=== PATIENT | male | born 1990 | race Caucasian/White ===

== ENCOUNTER 2021-04-24 16:34 | Emergency (ER) | payer OTHER, SELFPAY ==
[2021-04-24 16:45] VITALS: BP 109/62; PULSE 83; RESP 18; TEMP 37; O2SAT 99
--- NOTE | 2021-04-24 18:11 | ED.GENADULT ---
HPI - General Adult General Chief complaint: Dental/Oral Stated complaint: tooth abcess Time Seen by Provider: 04/24/21 16:50 Source: patient Mode of arrival: ambulatory Limitations: no limitations History of Present Illness HPI narrative: Patient presents for evaluation of right upper dental pain for the last two days. He states the pain is constant, throbbing, 3 out of 10 in severity. He has had problems with recurrent dental abscess formations in the past. No fever, chills, nausea, vomiting, trismus or problems handling secretions. He has not taken any antibiotics as of late. In the past he has drained fluid from abscess formations, although he has not done so recently. Related Data Allergies Allergy/AdvReac Type Severity Reaction Status Date / Time No Known Allergies Allergy Verified 04/24/21 16:34 Review of Systems Review of Systems: Narrative: CONSTITUTIONAL: Denies fever, chills, or sweats. EYES: Denies visual changes, redness, or discharge. ENT: Reports right upper dental pain. Denies rhinorrhea, congestion, sore throat, or otalgia. CARDIOVASCULAR: Denies chest pain, palpitations, or edema. RESPIRATORY: Denies cough or dyspnea. GASTROINTESTINAL: Denies abdominal pain, nausea, vomiting, or diarrhea. GENITOURINARY: Denies dysuria or hematuria. SKIN: Denies rash or itching. MUSCULOSKELETAL: Denies back pain, joint pain, or myalgia. NEUROLOGIC: Denies headache, numbness, dizziness, or weakness. PSYCHIATRIC: Denies anxiety or depression. [facility] Past Medical History Medical History (Updated 04/24/21 @ 18:21 by ESTEBAN Hood, ) No pertinent past medical history Surgical History Surgical History No pertinent past surgical history Family History Family History Mother No pertinent past medical history Social History Social History Smoking packs per day: 1 Smoking cigarettes per day: 20.0 Smoking status: Current every day smoker Substance use: never Gender identity (if verbalized by the patient): Male Sexual Orientation (if Verbalized by the Patient): Straight or Heterosexual Spiritual care concerns: No Exam Narrative: Exam Narrative: GENERAL: Well-appearing, well-nourished, and in no acute distress. HEAD: Normocephalic, atraumatic. EYES: PERRLA and EOMI. ENT: Nares clear, no rhinorrhea or epistaxis. Mucous membranes moist. Following teeth are fractured: #4, #19, #20-No visible or palpable abscess, Oropharynx without tonsillar hypertrophy exudate or other lesions. Bilateral TMs pearly jones nonbulging NECK: Supple. No adenopathy or masses. No carotid bruits or JVD CHEST: Clear to auscultation. No respiratory distress. No wheezes rales or rhonchi HEART: Regular rate and rhythm. No murmur heard. Normal peripheral pulses. ABDOMEN: Soft, nontender, nondistended, normal active bowel sounds. EXTREMITIES: Normal range of motion. No edema. SKIN: Warm, dry, no rash. NEURO: No focal deficits. Alert and oriented x3. PSYCH: Normal mood and affect. Course Course Emergency Course: This is a 31-year-old male who presents with 2-day history of dental pain. On physical exam he has no drainable fluid collection. He does have several dental fractures noted. He was advised to follow-up with dentist. We will place him on penicillin and ibuprofen. Advised follow-up for worsening symptoms. Patient agreed with plan of care. Vital Signs Vital signs: Vital Signs Temperature 37.0 C 04/24/21 16:45 Pulse Rate 83 04/24/21 16:45 Respiratory Rate 18 04/24/21 16:45 Blood Pressure 109/62 04/24/21 16:45 Pulse Oximetry 99 04/24/21 16:45 Temperature 37.0 C 04/24/21 16:45 Pulse Rate 83 04/24/21 16:45 Respiratory Rate 18 04/24/21 16:45 Blood Pressure 109/62 04/24/21 16:45 Pulse Oximetry 99 06
== END 2021-04-24 18:32 | disposition home or self-care (01) ==
PROVIDERS: Emergency Provider Nurse Practitioner
DX: K03.81 Cracked tooth (principal); F17.210 Nicotine dependence, cigarettes, uncomplicated
CPT/HCPCS: 99283

== ENCOUNTER 2021-09-23 03:38 | Emergency (ER) | payer OTHER, SELFPAY ==
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
[2021-09-23 03:48] VITALS: BP 115/76; PULSE 86; RESP 16; TEMP 36.6; O2SAT 99
[2021-09-23 03:53] VITALS: PULSE 78; RESP 16
--- NOTE | 2021-09-23 03:59 | PC.NURSE ---
contacted poison control sincere recommend food, kiet, return to hosp if he develops a fever
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
[2021-09-23] MEDS: SODIUM CHLORIDE 0.9% IV 1,000 ML 999 ML IV CONT (04:24)
[2021-09-23] MEDS: ONDANSETRON INJ 4 MG/2 ML VIAL IV PUSH (04:25)
--- NOTE | 2021-09-23 04:27 | PC.NURSE ---
eating sandwich and chips
--- NOTE | 2021-09-23 04:40 | PC.NURSE ---
small amount of vomiting after eating smiling resp even unlabored
[2021-09-23 04:41] VITALS: PULSE 80; RESP 16; O2SAT 100
[2021-09-23] MEDS: MAG HYDROX/AL HYDROX/SIMETH 30 ML UDC PO (05:14)
[2021-09-23 05:23] VITALS: BP 101/78; PULSE 78; RESP 16; O2SAT 99
--- NOTE | 2021-10-02 07:01 | PC.NURSE ---
LATE ENTRY This note is being entered to document information to the patient's record. The following information was omitted on [09/23/21], by [Floyd Cruz].Ns 1000cc infused at 0625 0cc wasted
== END 2021-09-23 05:23 | disposition home or self-care (01) ==
PROVIDERS: Emergency Provider Emergency Medicine
DX: T59.891A Toxic effect of other specified gases, fumes and vapors, accidental (unintentional), initial encounter (principal); F17.210 Nicotine dependence, cigarettes, uncomplicated
CPT/HCPCS: 71045; 96361; 96374; 99284; A9270; J2405; J7030

== ENCOUNTER 2025-03-14 14:05 | Emergency (ER) | payer OTHER, SELFPAY ==
--- NOTE | 2025-03-14 14:19 | ED_ITS ---
HPI - Extremity Injury (Lower) General Chief Complaint: Extremity Injury, Lower Stated Complaint: left foot hard to walk on Time Seen by Provider: 03/14/25 14:19 Source: patient Mode of arrival: ambulatory Limitations: no limitations History of Present Illness HPI Narrative: 35 yo M presents with c/o pain, itching, redness and swelling to both feet. increase in irritation to R foot concerned him for staph infection . Also reports R great toenail been black, thick and growing irrgularly for over a year. Has not seen at insurance account specialist. All systems reviewed and negative except as noted above. Related Data Home Medications ?Medication ?Instructions ?Recorded ?Confirmed ?Last Taken ?Type buspirone 15 mg tablet mg 03/14/25 Unknown History hydroxyzine HCl 25 mg tablet mg 03/14/25 Unknown History nicotine 21 mg/24 hr daily 03/14/25 Unknown History transdermal patch Allergies Allergy/AdvReac Type Severity Reaction Status Date / Time No Known Allergies Allergy Verified 03/14/25 14:13 Review of Systems Review of Systems: CONSTITUTIONAL: Denies fever, chills, or sweats. EYES: Denies visual changes, redness, or discharge. ENT: Denies rhinorrhea, congestion, sore throat, or otalgia. CARDIOVASCULAR: Denies chest pain, palpitations, or edema. RESPIRATORY: Denies cough or dyspnea. GASTROINTESTINAL: Denies abdominal pain, nausea, vomiting, or diarrhea. GENITOURINARY: Denies dysuria or hematuria. SKIN: reports redness, swelling, itching both feet. MUSCULOSKELETAL: Denies back pain, joint pain, or myalgia. NEUROLOGIC: Denies headache, numbness, or weakness. PSYCHIATRIC: Denies anxiety or depression. All other systems reviewed are negative, except as documented in HPI. [facility] Past Medical History Medical History No pertinent past medical history Surgical History Surgical History No pertinent past surgical history Family History Family History Mother No pertinent past medical history Social History Social History Smoking packs per day: 1 Smoking cigarettes per day: 20.0 Smoking status: Current every day smoker Substance use: never Gender identity (if verbalized by the patient): Male Sexual Orientation (if Verbalized by the Patient): Straight or Heterosexual Spiritual care concerns: No Comments At time of signature, agree with nursing past medical, surgical, social and family history. There is no relevant family history pertinent to the presenting complaint. Exam Narrative: GENERAL: This is a well-nourished, well-developed patient, in no apparent distress. HEAD: normocephalic, atraumatic. EYES: PERRL. Sclera clear/white. Vision is grossly intact. EARS: External ears normal NOSE: External nose normal NECK: Neck supple, non-tender without lymphadenopathy, masses or thyromegaly. CARDIOVASCULAR: Regular rate and rhythm without murmurs, gallops, or rubs. RESPIRATORY: Clear to auscultation. Breath sounds equal bilaterally. No wheezes, rales, or rhonchi. SKIN: warm, Dry, intact with no suspicious lesions or rash, good texture and turgor. R great toenail is black and thick NEURO: awake, alert, and oriented to person, place and time. There were no obvious focal neurologic abnormalities. EXTREMITIES: erythema, macerated, wet appearing skin to webbing of toes of both feet consistent with athletes foot. Course Course Level of Care: Express Care Visit Vital Signs Vital signs: Vital Signs Pulse Rate 50 L 03/14/25 14:20 Respiratory Rate 18 03/14/25 14:20 Blood Pressure 120/69 03/14/25 14:20 Pulse Oximetry 98 03/14/25 14:20 Oxygen Delivery Room Air 03/14/25 14:20 Pulse Rate 50 L 03/14/25 14:20 Respiratory Rate 18 03/14/25 14:20 Blood Pressure 120/69 03/14/25 14:20 Pulse Oximetry 98 03/14/25 14:20 Oxygen Delivery Room Air 03/14/25 14:20 reviewed MDM - Extremity Injury (Lower) MDM Narrative Medical decision making narrative: will treat fungal toenail infection with to Prolia. Will treat as Athlete's foot with antifungal. will prescribe antibiotic as a precaution for possible infection. Referred to special education secretary. Please be advised this is a medical document. It is intended for [id number] communication. It is written in medical language and may contain unfamiliar abbreviations or verbiage. Medical documents are intended to carry relevant information, facts as evident, and the clinical opinion of the practitioner at the time of the encounter. This report may have been done utilizing a voice recognition system. Attempts have been made to correct errors. However, there may be uncorrected grammatical, spelling, and recognition errors present. The file time of this note does not necessarily represent the time of service. Discharge Plan Discharge Clinical Impression: Athlete's foot, Fungal infection of toenail Patient Disposition: Home Condition: Stable Instructions: Antifungals (On the skin) Additional Instructions: take medications as prescribed. Apply Jublia to affected toenails only. Follow-up with special education secretary if symptoms not improving. Patient Language: Syrian Prescriptions: New terbinafine HCl 250 mg tablet 250 mg PO DAILY 28 Days Qty: 28 0RF Jublia 10 % solution with applicator 1 applic topical DAILY 336 Days Qty: 8 1RF cephalexin 500 mg capsule 500 mg PO Q8H 7 Days Qty: 21 0RF No Action nicotine 21 mg/24 hr patch 24 hour hydroxyzine HCl 25 mg tablet buspirone 15 mg tablet Follow-up/Referrals: Miah De Leon Jr., VICENTE [Physician] - ( follow-up with special education secretary) PHYSICIAN,FRUIT LOADER [Primary Care Provider] - Time of Disposition: 14:37
[2025-03-14 14:20] VITALS: BP 120/69; PULSE 50; RESP 18; O2SAT 98
== END 2025-03-14 14:45 | disposition home or self-care (01) ==
PROVIDERS: Emergency Provider Nurse Practitioner Family
DX: B35.3 Tinea pedis (principal); B35.1 Tinea unguium; F17.210 Nicotine dependence, cigarettes, uncomplicated
CPT/HCPCS: 99213; G0463

== ENCOUNTER 2025-03-23 14:05 | Emergency (ER) | payer OTHER, SELFPAY ==
[2025-03-23 14:15] VITALS: BP 101/70; PULSE 57; RESP 20; TEMP 36.4; O2SAT 99
--- NOTE | 2025-03-23 14:30 | ED.NAVMDI ---
HPI - Nausea/Vomiting/Diarrhea General Chief complaint: Nausea/Vomiting/Diarrhea Stated complaint: sick to stomach, nauseated, diarrhea Time Seen by Provider: 03/23/25 14:05 Source: patient Mode of arrival: ambulatory Limitations: no limitations History of Present Illness HPI Narrative: Patient is a 35-year-old male who presents with nausea and diarrhea that started last night. Patient is on antifungal and antibiotic that he started on 03/14. Patient states he had 3 episodes of diarrhea overnight by has not had any since he woke up. Has not had any vomiting but does feel nauseous. Has not been taking medication with food. Denies any fever, chills, blood in stool. Related Data Home Medications ?Medication ?Instructions ?Recorded ?Confirmed ?Last Taken ?Type buspirone 15 mg tablet 15 mg PO HS 03/14/25 03/23/25 Unknown History hydroxyzine HCl 25 mg tablet 25 mg PO 03/14/25 Unknown History nicotine 21 mg/24 hr daily 1 patch transdermal 03/14/25 Unknown History transdermal patch risperidone 4 mg tablet 4 mg PO HS 03/23/25 03/23/25 Unknown History Allergies Allergy/AdvReac Type Severity Reaction Status Date / Time No Known Allergies Allergy Verified 03/23/25 14:21 Review of Systems Review of Systems: All systems reviewed & are unremarkable except as noted in HPI and below Constitutional: Constitutional: Denies body ache(s), Denies chills, Denies fatigue, Denies fever(s), Denies headache(s), Denies malaise and Denies weakness Eyes: Eyes: Denies blurry vision, Denies irritation and Denies loss of vision ENT: Denies otalgia, Denies headache(s), Denies nasal discharge, Denies sinus pain and Denies sore throat Cardiovascular: Cardiovascular: Denies chest pain, Denies irregular heart rhythm and Denies dyspnea Respiratory: Respiratory: Denies dyspnea Gastrointestinal: Gastrointestinal: Denies abdominal pain, Denies melena, Denies hematochezia, Reports diarrhea, Reports nausea and Denies vomiting Musculoskeletal: Musculoskeletal: Denies back pain, Denies myalgias and Denies arthralgias Integumentary/Breasts: Skin/Breast: Denies pruritus and Denies rash Neurologic: Denies headache(s), Denies loss of vision and Denies weakness Psychiatric: Psychiatric: Reports no additional psychiatric complaints Endocrine: Endocrine: Denies fatigue PMFSH Past Medical History Medical History No pertinent past medical history Surgical History Surgical History No pertinent past surgical history Family History Family History Mother No pertinent past medical history Social History Social History Smoking packs per day: 1 Smoking cigarettes per day: 20.0 Smoking status: Current every day smoker Substance use: never Gender identity (if verbalized by the patient): Male Sexual Orientation (if Verbalized by the Patient): Straight or Heterosexual Spiritual care concerns: No Comments At time of signature, agree with nursing past medical, surgical, social and family history. There is no relevant family history pertinent to the presenting complaint. Exam Const: General: cooperative, healthy appearing, comfortable, no acute distress and well nourished Nutritional Appearance: well nourished Orientation/consciousness: patient oriented x3 Limitations: no limitations HENMT: Head: normal to inspection, normocephalic and atraumatic Ears: hearing grossly normal bilaterally and external ears normal Face/Nose/Sinus: Normal external nose present, normal facial exam and face symmetric Face and sinus: normal facial exam and face symmetric Mouth: Yes lip normal Eyes: General: appearance normal, both eyes and all related structures Alignment and Position: alignment normal and position normal Periorbital: periorbital findings normal Eyelids: eyelids normal Pupils: Equal, round and reactive pupils present EOM: EOMs intact bilaterally Neck: Neck: normal visual inspection, full ROM and supple Chest: Chest palpation & inspection: normal inspection of the chest Resp: Effort & Inspection: normal respiratory effort and able to speak in complete sentences Auscultation: clear to auscultation bilaterally Cardio: Rate: regular rate Rhythm: regular rhythm Heart sounds: S1 normal heart sound present and S2 normal heart sound present GI: Inspection: normal to inspection GI Palp: No abdominal tenderness, Yes Soft to palpation and No Guarding due to palpation present (GI) Auscultation: normal bowel sounds Skin: General skin exam: normal color and no rashes or lesions noted Neuro: General: patient oriented x3 and moves all extremities Cranial nerves: Yes Equal, round and reactive pupils present Speech: normal speech Gait exam (Neuro): Normal gait present Extrem: General: normal to inspection, full ROM and no edema Psych: Appearance: grossly normal and well kempt Mental Status: mental status grossly normal Speech and movement: Normal speech and movement present Affect: normal affect Attitude: cooperative Thought process: Normal thought process present Course Course Emergency Course: Patient is aware of diagnosis, understands and agrees to treatment plan. Anticipatory guidance given. Patient agrees to follow-up as directed and is aware of reasons to seek care at the emergency department. Portions of this record may have been created with voice recognition software Level of Care: Express Care Visit Vital Signs Vital signs: Vital Signs Temperature 36.4 C 03/23/25 14:15 Pulse Rate 57 L 03/23/25 14:15 Respiratory Rate 20 03/23/25 14:15 Blood Pressure 101/70 03/23/25 14:15 Pulse Oximetry 99 03/23/25 14:15 Oxygen Delivery Room Air 03/23/25 14:15 Temperature 36.4 C 03/23/25 14:15 Pulse Rate 57 L 03/23/25 14:15 Respiratory Rate 20 03/23/25 14:15 Blood Pressure 101/70 03/23/25 14:15 Pulse Oximetry 99 03/23/25 14:15 Oxygen Delivery Room Air 03/23/25 14:15 Reviewed MDM - Nausea/Vomiting/Diarrhea MDM Narrative Medical decision making narrative: Pt well hydrated appearing, in no respiratory distress, hemodynamically stable. Recommend supportive care. The patient is stable at time of discharge the clinical impression was discussed and the patient was given the opportunity to ask questions, which were addressed as completely as possible given the information available at present. Anticipatory guidance and return to care precautions were discussed and the importance of primary care follow-up was stressed and encouraged. The patient voiced understanding of the plan, indications to return, and the need for follow-up. Exam findings show no acute concerns or changes Patient is appropriate for outpatient treatment and follow-up. Differential Diagnosis Differential diagnosis: Likely traveler's diarrhea, food poisoning, gastroenteritis, clostridium difficile infection and drug-induced nausea and vomiting Medical Records Attestation: I reviewed the patient's medical records. Discharge Plan Discharge Clinical Impression: Gastroenteritis Patient Disposition: Home Condition: Stable Instructions: Gastroenteritis (ED) Additional Instructions: Continue taking medications as prescribed. Add a probiotic or yogurt when taking medication. Take medications with food. Use Zofran as needed for nausea Stay hydrated. Take small sips of fluid containing electrolytes frequently(Body [place], Gatorade, Powerade, liquid IV). Eat small meals that her very bland including bananas, applesauce, rice, toast, boiled or grilled chicken, soup. Do not eat anything fried, spicy or overly acidic. You should go to the hospital if you experience return of persistent nausea and vomiting that does not resolve and does not allow you to tolerate any food or fluids, persistent fevers for greater than 2-3 more days, increasing abdominal pain that persists despite medications, persistent diarrhea, dizziness, syncope (fainting), or for any other concerns. Patient Language: Iraqi Prescriptions: New ondansetron 4 mg tablet,disintegrating 4 mg PO Q6-8H PRN (Reason: nausea and vomiting) Qty: 7 0RF No Action nicotine 21 mg/24 hr patch 24 hour 1 patch transdermal hydroxyzine HCl 25 mg tablet 25 mg PO buspirone 15 mg tablet 15 mg PO HS terbinafine HCl 250 mg tablet 250 mg PO DAILY 28 Days Qty: 28 0RF Jublia 10 % solution with applicator 1 applic topical DAILY 336 Days Qty: 8 1RF cephalexin 500 mg capsule 500 mg PO Q8H 7 Days Qty: 21 0RF risperidone 4 mg tablet 4 mg PO HS Follow-up/Referrals: Esdras Chapa MD [Physician] - 3 Days (Establish care) Stand Alone Forms: Work/School Release IP Time of Disposition: 14:38
== END 2025-03-23 14:40 | disposition home or self-care (01) ==
PROVIDERS: Emergency Provider Nurse Practitioner Family
DX: K52.9 Noninfective gastroenteritis and colitis, unspecified (principal); F17.210 Nicotine dependence, cigarettes, uncomplicated
CPT/HCPCS: 99213; G0463

== ENCOUNTER 2025-04-25 15:21 | Emergency (ER) | payer OTHER, SELFPAY ==
[2025-04-25 15:27] VITALS: BP 112/71; PULSE 51; RESP 20; TEMP 36.7; O2SAT 98
--- NOTE | 2025-04-25 15:27 | ED.SKABFB ---
HPI - Skin/Abscess/Foreign Bdy General Chief complaint: Skin/Abscess/Foreign Body Stated complaint: Insect Bite Time Seen by Provider: 04/25/25 15:27 Source: patient, RN notes reviewed and old records reviewed Mode of arrival: ambulatory Limitations: no limitations History of Present Illness HPI narrative: 35-year-old male presents to the [facility] with concerns that he was bit by spider to the right great toe. Has a callus to the medial aspect, paronychia around the medial aspect of the toenail, redness tenderness noted. Patient states it has been there since yesterday. No treatment prior to arrival Related Data Home Medications ?Medication ?Instructions ?Recorded ?Confirmed ?Last Taken ?Type buspirone 15 mg tablet 15 mg PO HS 03/14/25 03/23/25 Unknown History hydroxyzine HCl 25 mg tablet 25 mg PO 03/14/25 Unknown History nicotine 21 mg/24 hr daily 1 patch transdermal 03/14/25 Unknown History transdermal patch risperidone 4 mg tablet 4 mg PO HS 03/23/25 03/23/25 Unknown History Allergies Allergy/AdvReac Type Severity Reaction Status Date / Time No Known Allergies Allergy Verified 04/25/25 15:22 Review of Systems Review of Systems: All systems reviewed & are unremarkable except as noted in HPI and below Constitutional: Constitutional: Reports no additional constitutional complaints Musculoskeletal: Musculoskeletal: Reports no additional musculoskeletal complaints Integumentary/Breasts: Skin/Breast: Reports as per HPI, Reports erythema and Reports skin pain PMFSH Past Medical History Medical History No pertinent past medical history Surgical History Surgical History No pertinent past surgical history Family History Family History Mother No pertinent past medical history Social History Social History Smoking packs per day: 1 Smoking cigarettes per day: 20.0 Smoking status: Current every day smoker Substance use: never Gender identity (if verbalized by the patient): Male Sexual Orientation (if Verbalized by the Patient): Straight or Heterosexual Spiritual care concerns: No Comments At the time of my signature, I reviewed and agree with the nursing past medical, surgical, social, and family history. There is no relevant family history pertinent to the patient complaint. Exam Const: General: cooperative, healthy appearing, comfortable, no acute distress, well developed, alert and well nourished Nutritional Appearance: well nourished Orientation/consciousness: patient oriented x3 Limitations: no limitations HENMT: Head: normal to inspection Eyes: General: appearance normal, both eyes and all related structures Alignment and Position: alignment normal Neck: Neck: normal visual inspection, full ROM, no lymphadenopathy and no meningeal signs Chest: Chest palpation & inspection: normal inspection of the chest Resp: Effort & Inspection: normal respiratory effort and able to speak in complete sentences Cardio: Rate: regular rate Skin: General skin exam: normal color and no rashes or lesions noted Nails: other Other: Medial aspect right great toe, erythema around the toenail, fluctuance noted. Callus noted to the lateral aspect 0.5 cm in diameter. Neuro: General: patient oriented x3, gait normal, moves all extremities and no meningeal signs Cognition (Neuro): normal cognition Speech: normal speech Gait exam (Neuro): Normal gait present Extrem: General: normal to inspection, full ROM, capillary refill normal and normal gait Left lower extremity: foot Details: normal capillary refill, tenderness and toes with normal ROM Psych: Appearance: grossly normal and well kempt Mental Status: mental status grossly normal Speech and movement: Normal speech and movement present and Clear speech present Affect: normal affect Attitude: cooperative Course Course Level of Care: Express Care Visit Vital Signs Vital signs: Vital Signs Temperature 98.1 F 04/25/25 15:27 Pulse Rate 51 L 04/25/25 15:27 Respiratory Rate 20 04/25/25 15:27 Blood Pressure 112/71 04/25/25 15:27 Pulse Oximetry 98 04/25/25 15:27 Oxygen Delivery Room Air 04/25/25 15:27 Temperature 98.1 F 04/25/25 15:27 Pulse Rate 51 L 04/25/25 15:27 Respiratory Rate 20 04/25/25 15:27 Blood Pressure 112/71 04/25/25 15:27 Pulse Oximetry 98 04/25/25 15:27 Oxygen Delivery Room Air 04/25/25 15:27 Reviewed MDM - Skin/Abscess/Foreign Bdy MDM Narrative Medical decision making narrative: Patient sitting in exam room. Patient is nontoxic, vitals are stable. Patient presents with paronychia and a callus to the right great toe. Soak foot for 15 minutes in warm water with soap. Used 18 gauge needle to pull away the skin a paronychia, culture collected, paronychia open. Patient appropriate for outpatient treatment with close follow-up Discharge instructions reviewed with patient, as well as provided in writing per nursing staff. The instructions also include specific and strict return/GO TO THE ER as well as f/u information. All questions have been answered, and the patient deny any further questions with discharge and discharge plan. Some parts of this dictation were generated by voice recognition software and may contain typographical and/or grammatical inaccuracies. Differential Diagnosis Differential diagnosis: Likely abscess of skin or subcutaneous tissue, viral exanthem, urticaria, cellulitis, insect bites, impetigo, contact dermatitis and other (Paronychia) Critical Care Time Critical Care Time Critical Care Time: No Discharge Plan Discharge Clinical Impression: Paronychia, Callus Patient Disposition: Home Condition: Stable Instructions: Antibiotic Form, Paronychia (ED) Additional Instructions: Soaks 2 to 3 times a day for 15-20 minutes for 7 days in warm soapy water with Epson salt. Take antibiotic as prescribed Follow-up with primary care provider Worsening symptoms go directly to the emergency room Patient Language: Peruvian Prescriptions: New sulfamethoxazole-trimethoprim [Bactrim DS] 800-160 mg tablet 1 tablet PO Q12H Qty: 14 0RF No Action nicotine 21 mg/24 hr patch 24 hour 1 patch transdermal hydroxyzine HCl 25 mg tablet 25 mg PO buspirone 15 mg tablet 15 mg PO HS terbinafine HCl 250 mg tablet 250 mg PO DAILY 28 Days Qty: 28 0RF Jublia 10 % solution with applicator 1 applic topical DAILY 336 Days Qty: 8 1RF risperidone 4 mg tablet 4 mg PO HS ondansetron 4 mg tablet,disintegrating 4 mg PO Q6-8H PRN (Reason: nausea and vomiting) Qty: 7 0RF Follow-up/Referrals: PHYSICIAN,[facility] CHIEF DELIVERY [Primary Care Provider] - Stand Alone Forms: Work/School Release IP Time of Disposition: 15:49
== END 2025-04-25 16:00 | disposition home or self-care (01) ==
PROVIDERS: Emergency Provider Nurse Practitioner
DX: L03.031 Cellulitis of right toe (principal); L84 Corns and callosities; F17.210 Nicotine dependence, cigarettes, uncomplicated
CPT/HCPCS: 87070; 87075; 87181; 87205; 99213; G0463

== ENCOUNTER 2025-07-31 11:39 | Emergency (ER) | payer OTHER, SELFPAY ==
[2025-07-31 11:46] VITALS: BP 122/77; PULSE 82; RESP 16; TEMP 36.6; O2SAT 98
--- NOTE | 2025-07-31 12:25 | ED.NAVMDI ---
HPI - Nausea/Vomiting/Diarrhea General Chief complaint: Nausea/Vomiting/Diarrhea Stated complaint: Diarrhea Time Seen by Provider: 07/31/25 12:00 Source: patient and RN notes reviewed Mode of arrival: ambulatory Limitations: no limitations History of Present Illness HPI Narrative: 35-year-old male presents Express Care complaining of diarrhea since yesterday. Patient about 2 days ago he ate frozen fish for dinner and the next day about 16 hours he developed diarrhea. Patient said he had numerous amounts of diarrhea yesterday and reports only having 3 episodes of diarrhea today. Patient reports some abdominal cramping but denies any abdominal pain. Patient denies any nausea, vomiting, vomiting blood, fevers, body aches, chills, chest pain, shortness of breath, upper respiratory symptoms, or any other symptoms. Patient is not tingling help with the diarrhea. Patient reports that brown and watery denies any blood or mucus in the stools. Related Data Home Medications ?Medication ?Instructions ?Recorded ?Confirmed ?Last Taken ?Type buspirone 15 mg tablet 15 mg PO HS 03/14/25 03/23/25 Unknown History hydroxyzine HCl 25 mg tablet 25 mg PO 03/14/25 Unknown History nicotine 21 mg/24 hr daily 1 patch transdermal 03/14/25 Unknown History transdermal patch risperidone 4 mg tablet 4 mg PO HS 03/23/25 03/23/25 Unknown History Allergies Allergy/AdvReac Type Severity Reaction Status Date / Time No Known Allergies Allergy Verified 04/25/25 15:22 Review of Systems Review of Systems: CONSTITUTIONAL: Denies fever, chills, or sweats. EYES: Denies visual changes, redness, or discharge. ENT: Denies rhinorrhea, congestion, sore throat, or otalgia. CARDIOVASCULAR: Denies chest pain, palpitations, or edema. RESPIRATORY: Denies cough or dyspnea. GASTROINTESTINAL: Denies abdominal pain, nausea, vomiting, Positive diarrhea. GENITOURINARY: Denies dysuria or hematuria. SKIN: Denies rash or itching. MUSCULOSKELETAL: Denies back pain, joint pain, or myalgia. NEUROLOGIC: Denies headache, numbness, or weakness. PSYCHIATRIC: Denies anxiety or depression. All other systems reviewed are negative, except as documented in HPI. [facility] Past Medical History Medical History No pertinent past medical history Surgical History Surgical History No pertinent past surgical history Family History Family History Mother No pertinent past medical history Social History Social History Smoking packs per day: 1 Smoking cigarettes per day: 20.0 Smoking status: Current every day smoker Substance use: never Gender identity (if verbalized by the patient): Male Sexual Orientation (if Verbalized by the Patient): Straight or Heterosexual Spiritual care concerns: No Comments At the time of my signature, I reviewed and agree with the nursing past medical, surgical, social, and family history. There is no relevant family history pertinent to the patient complaint. Exam Narrative: GENERAL: This is a well-nourished, well-developed adult, in no apparent distress. They are non ill-appearing, nontoxic appearing. HEAD: normocephalic, atraumatic. EYES: Sclera clear/white. Conjunctiva normal. Vision is grossly intact. Extraocular movements intact EARS: External ears normal, Hearing grossly intact. NOSE: External nose normal THROAT: Mucous membranes moist, NECK: Neck supple, CARDIOVASCULAR: Regular rate and rhythm without murmurs, gallops, or rubs. RESPIRATORY: Clear to auscultation. Breath sounds equal bilaterally. No wheezes, rales, or rhonchi. GASTROINTESTINAL: Abdomen soft, non-tender, nondistended. Bowel sounds are active. No hepato-splenomegaly, or palpable masses. No guarding or rigidity. No rebound tenderness. SKIN: warm, Dry, intact with no suspicious lesions or rash, good texture and turgor. NEURO: awake, alert, and oriented to person, place and time. There were no obvious focal neurologic abnormalities. EXTREMITIES: No joint tenderness, effusion, or edema noted. Course Course Emergency Course: Portions of this record may have been created with voice recognition software Level of Care: Express Care Visit Vital Signs Vital signs: Vital Signs Temperature 97.9 F 07/31/25 11:46 Pulse Rate 82 07/31/25 11:46 Respiratory Rate 16 07/31/25 11:46 Blood Pressure 122/77 07/31/25 11:46 Pulse Oximetry 98 07/31/25 11:46 Oxygen Delivery Room Air 07/31/25 11:46 Temperature 97.9 F 07/31/25 11:46 Pulse Rate 82 07/31/25 11:46 Respiratory Rate 16 07/31/25 11:46 Blood Pressure 122/77 07/31/25 11:46 Pulse Oximetry 98 07/31/25 11:46 Oxygen Delivery Room Air 07/31/25 11:46 Reviewed MDM - Nausea/Vomiting/Diarrhea MDM Narrative Medical decision making narrative: Nontender on exam. No peritoneal findings. No nausea vomiting. Patient does not appear clinically dehydrated. Vital signs hemodynamically stable. Patient likely has gastroenteritis. Recommend patient to let the diarrhea run its course however he may take Pepto-Bismol as needed numbers are Imodium for last resort if diarrhea becomes uncontrollable. Discussed physical exam findings. Advised supportive measures and signs/symptoms to go to the ER. Pt is appropriate for outpt treatment and f/u. Differential Diagnosis Differential diagnosis: Likely traveler's diarrhea, food poisoning, gastroenteritis and dehydration Critical Care Time Critical Care Time Critical Care Time: No Discharge Plan Discharge Clinical Impression: Diarrhea Qualifiers: Diarrhea type: presumed infectious Qualified Code(s): R19.7 - Diarrhea, unspecified Patient Disposition: Home Condition: Stable Instructions: Antibiotic Form, Acute Diarrhea (ED) Additional Instructions: S likely gastroenteritis, it is self-limiting condition or resolve within 24-48 hours. However sometimes symptoms may linger on up to 7 days. It is recommended not to take anything for the diarrhea and allow the diarrhea to run its course. If the diarrhea persist and you feeling better, you may take Pepto-Bismol as needed to help control the diarrhea. You may also take Imodium if the diarrhea is becoming uncontrollable. Recommend hydration with plenty of fluids electrolyte supplementation such as Pedialyte. Follow-up PCP in 3-5 days. If Your unable to keep anything down, you developed abdominal pain, fevers, uncontrollable diarrhea, bloody stools, concerns of dehydration, or any other concerns please go to the ER immediately. Patient Language: Portuguese Prescriptions: No Action nicotine 21 mg/24 hr patch 24 hour 1 patch transdermal hydroxyzine HCl 25 mg tablet 25 mg PO buspirone 15 mg tablet 15 mg PO HS terbinafine HCl 250 mg tablet 250 mg PO DAILY 28 Days Qty: 28 0RF Jublia 10 % solution with applicator 1 applic topical DAILY 336 Days Qty: 8 1RF risperidone 4 mg tablet 4 mg PO HS ondansetron 4 mg tablet,disintegrating 4 mg PO Q6-8H PRN (Reason: nausea and vomiting) Qty: 7 0RF sulfamethoxazole-trimethoprim [Bactrim DS] 800-160 mg tablet 1 tablet PO Q12H Qty: 14 0RF amoxicillin-pot clavulanate 875-125 mg tablet 1 tablet PO Q12H 7 Days Qty: 14 0RF Follow-up/Referrals: PHYSICIAN,APPLICATION MANAGER [Primary Care Provider, Internal Medicine] Time of Disposition: 12:09
== END 2025-07-31 12:24 | disposition home or self-care (01) ==
DX: R19.7 Diarrhea, unspecified (principal); F17.210 Nicotine dependence, cigarettes, uncomplicated
CPT/HCPCS: 99211; G0463